=== PATIENT | male | born 1990 ===

== ENCOUNTER 2017-04-21 12:03 | Emergency (ER) | payer SELFPAY ==
[2017-04-21 12:15] VITALS: BP 149/86; PULSE 66; RESP 16; TEMP 97; O2SAT 99
[2017-04-21] MEDS ORDERED: Naproxen 500 MG TAB PO STA (12:40)
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
== END 2017-04-21 13:09 | disposition home or self-care (01) ==
LOC: H.ER 12:03
DX: S09.90XA Unspecified injury of head, initial encounter (principal); W19.XXXA Unspecified fall, initial encounter; Y93.67 Activity, basketball